=== PATIENT | female | born 1975 | race Caucasian/White ===

== ENCOUNTER 2019-05-05 17:18 | Emergency (ER) | payer BC ==
[~2019-05-05] VITALS: Ht 157.5 cm; Wt 61.2 kg
[2019-05-05 17:51] VITALS: BP_SYST 156
--- NOTE | 2019-05-05 20:20 | NUR ---
Placed in room 8 . Placed on bail bonding agent, blood pressure machine and pulse oximeter. To gown for exam. Side rails up. Report given to SAMUEL GOFF.
--- NOTE | 2019-05-05 20:30 | NUR ---
Pt brought in by family. Pt states that she Was feeling generalized weakness during the day. Pt states that she had the occasional heart palpitation as well. Pt states that she denies shortness of breath, nausea, vomiting, diarrhea, or chest pain. Pt states no other medical complaint at this time. Pt states that she has had no other complaints in the past few days. Pt denies being sick and denies that others in the home have been sick as well. Pt resting in Bed, Awake, alert and oriented x4. Vss.
--- NOTE | 2019-05-05 20:34 | NUR ---
ER at bedside examining patient.
[2019-05-05 20:54] LABS: BASOPHILS # (AUTO) 0.1 K/uL (0.0-0.2); BASOPHILS % (AUTO) 0.7 % (0.0-2.0); EOSINOPHILS % (AUTO) 0.3 % (0.0-4.0); HEMATOCRIT 35.3 % (36-48); HEMOGLOBIN 11.3 g/dL (12.0-16.0); LYMPHOCYTES # (AUTO) 2.2 K/uL (1.0-5.5); LYMPHOCYTES % (AUTO) 20.7 % (20.5-51.5); MEAN CORPUSCULAR HEMOGLOBIN 22 pg (27-31); MEAN CORPUSCULAR HGB CONC 32 % (32-36); MEAN CORPUSCULAR VOLUME 70 fL (79.0-98.0); MONOCYTES # (AUTO) 0.5 K/uL (0.0-1.0); MONOCYTES % (AUTO) 4.9 % (1.7-9.3); NEUTROPHILS # (AUTO) 7.9 K/uL (1.8-7.7); NEUTROPHILS % (AUTO) 73.4 % (40.0-70.0); PLATELET COUNT (AUTO) 317 K/uL (130-430); RED BLOOD CELL COUNT(AUTO) 5.03 MIL/uL (4.2-6.2); RED CELL DISTRIBUTION WIDTH 17.7 % (9.0-15.0); WHITE BLOOD COUNT (AUTO) 10.8 K/uL (4.8-10.8)
[2019-05-05 21:02] LABS: CALCIUM 8.8 mg/dL (8.4-11.0); CREATININE 0.71 mg/dL (0.55-1.30); POTASSIUM 3.3 mmol/L (3.5-5.1)
[2019-05-05 21:07] LABS: ALBUMIN 4.2 g/dL (3.4-4.8); TOTAL BILIRUBIN 0.4 mg/dL (0.0-1.0)
[2019-05-05] MEDS ORDERED: POTASSIUM CHLORIDE 10 MEQ TAB.PRT.SR PO ONE (21:45)
[2019-05-05] MEDS ORDERED: POTASSIUM CHLORIDE 20 MEQ TAB.PRT.SR PO ONE (21:45)
[2019-05-05 22:24] LABS: BILIRUBIN,URINE NEGATIVE (NEGATIVE); BLOOD, URINE NEGATIVE (NEGATIVE); COLOR,URINE YELLOW (YELLOW); GLUCOSE,URINE NEGATIVE (NEGATIVE); KETONES,URINE 3+ (NEGATIVE); NITRITE, URINE NEGATIVE (NEGATIVE); PH,URINE 6.5 (5.0-8.0); PROTEIN URINE NEGATIVE (NEGATIVE); UROBILINOGEN,URINE 0.2 (0.2-1.0)
[2019-05-05 22:30] LABS: CLARITY/URINE HAZY (CLEAR); LEUKOCYTE ESTERASE ,URINE 2+ (NEGATIVE)
[2019-05-05 22:31] LABS: BACTERIA,URINE MODERATE /HPF (None Seen); MUCUS,URINE None Seen /LPF (None Seen); RBC,URINE 0-3 /HPF (0-3); WBC,URINE 20-50 /HPF (0-3)
--- NOTE | 2019-05-05 22:55 | NUR ---
Pt resting in ed bed comfortably with bedside
--- NOTE | 2019-05-05 23:20 | NUR ---
bedside with patient explaining that patient has mild UTI in addition to HypoKalemia. explained plan of care.
[2019-05-05 23:35] VITALS: BP_SYST 141
--- NOTE | 2019-05-05 23:55 | NUR ---
Patient given written and verbal discharge instructions and verbalizes understanding. ER MD discussed with patient the results and treatment provided. Patient in stable condition. ID arm band removed. NO Iv Rx of Macrobid given. Patient educated on pain management and to follow up with PMD. Pain Scale 0/10. Opportunity for questions provided and answered. Medication side effect fact sheet provided.
== END 2019-05-05 23:55 | disposition home or self-care (01) ==
LOC: SED 17:18
DX: E87.6 Hypokalemia (principal); R53.1 Weakness; N39.0 Urinary tract infection, site not specified
CPT/HCPCS: 36415; 80053; 81000-TC; 81025; 85025; 87086; 93005; 99284